=== PATIENT | female | born 1980 | race Two or more races ===

== ENCOUNTER → 2017-04-29 | Outpatient (CLI) | payer OTHER | END | disposition home or self-care (01) | LOC: PETCFH 11:16 | PROVIDERS: ATTEND Internal Medicine Gastroenterology | DX: R10.13 Epigastric pain (principal); R07.9 Chest pain, unspecified | CPT/HCPCS: 78227; A9537 ==

== ENCOUNTER 2019-08-03 05:38 | Observation (INO) | payer OTHER ==
[2019-08-01 09:36] LABS: BASOPHILS # (AUTO) 0.03 x10^3/uL (0-0.1); BASOPHILS % (AUTO) 1 % (0-1); EOSINOPHILS # (AUTO) 0.07 x10^3/uL (0-0.4); EOSINOPHILS % (AUTO) 2 % (1-7); LYMPHOCYTES # (AUTO) 1.39 x10^3/uL (1-3.4); LYMPHOCYTES % (AUTO) 35 % (22-44); MD NO; MEAN CORPUSCULAR HEMOGLOBIN 27.5 pg (27.0-34.8); MEAN CORPUSCULAR HGB CONC 32.6 g/dL (32.4-35.8); MEAN CORPUSCULAR VOLUME 84.2 fL (80-100); MEAN PLATELET VOLUME 9.7 fL (7.4-10.4); MONOCYTES # (AUTO) 0.47 x10^3/uL (0.2-0.8); MONOCYTES % (AUTO) 12 % (2-9); NEUTROPHILS # (AUTO) 1.99 x10^3/uL (1.8-6.8); NEUTROPHILS % (AUTO) 50 % (42-75); PLATELET COUNT 242 x10^3/uL (130-400); RED BLOOD COUNT 4.82 x10^6/uL (3.82-5.3); RED CELL DISTRIBUTION WIDTH 14.3 % (9.6-15.2)
[2019-08-01 09:36] LABS: MICROSCOPIC NOT IND
[2019-08-01 09:43] LABS: INTERNATIONAL NORMALIZED RATIO 0.98 (0.93-1.1); PROTHROMBIN TIME 10.3 Seconds (9.6-11.5)
[2019-08-01 09:44] LABS: CULTURE INDICATED? NO
[2019-08-01 09:45] LABS: ANION GAP 7 mmol/L (5-15); CALCIUM 8.8 mg/dL (8.5-10.1); CHLORIDE 107 mmol/L (98-107); CREATININE 0.75 mg/dL (0.55-1.02)
[~2019-08-03] VITALS: Ht 161.3 cm; Wt 72.2 kg
[~2019-08-03 05:38] MED LIST: GABA300C10 PO; LACT1CAP35 PO; MULT-806 PO; VITA1CAP PO
[2019-08-03] MEDS ORDERED: LACTATED RINGERS 1,000 ML IV SCH (06:06)
[2019-08-03 06:09] VITALS: BP 112/79
[2019-08-03] MEDS ORDERED: EPINEPHRINE 1 MG/ML, 1ML ONE (06:09)
[2019-08-03] MEDS ORDERED: THROMBIN (RECOMBINANT) 5,000 UNIT VIAL TP ONE (06:09)
[2019-08-03] MEDS ORDERED: BUPIVACAINE/PF 0.5% ONE (06:09)
[2019-08-03] MEDS ORDERED: BACITRACIN 50,000 UNIT ONE (06:10)
[2019-08-03] MEDS ORDERED: VANCOMYCIN 1,000 MG ONE (06:13)
[2019-08-03] MEDS ORDERED: FENTANYL PF 250 MCG/5ML ONE ×2 (06:19→07:32)
[2019-08-03] MEDS ORDERED: MIDAZOLAM 1 MG/ML, 2ML ONE (06:19)
[2019-08-03] MEDS ORDERED: PROPOFOL 10 MG/ML, 20ML ONE (06:26)
[2019-08-03] MEDS ORDERED: ROCURONIUM 10MG/ML,5ML ONE (06:26)
[2019-08-03] MEDS ORDERED: NEOSTIGMINE 1 MG/ML, 10ML ONE (06:26)
[2019-08-03] MEDS ORDERED: DEXAMETHASONE 4 MG/ML, 1ML ONE (06:26)
[2019-08-03] MEDS ORDERED: CEFAZOLIN 1,000 MG ONE (06:26)
[2019-08-03] MEDS ORDERED: ONDANSETRON 2MG/ML, 2ML ONE (06:26)
[2019-08-03] MEDS ORDERED: GLYCOPYRROLATE 0.2MG/1ML, 5ML ONE (06:26)
[2019-08-03] MEDS ORDERED: PHENYLEPHRINE 10 MG/ML ONE (06:26)
[2019-08-03 06:27] LABS: HCG UR SG 1.013 (1.003-1.030)
[2019-08-03] MEDS ORDERED: ACETAMINOPHEN 500 MG TABLET PO ONE (06:30)
[2019-08-03] MEDS ORDERED: SCOPOLAMINE PATCH, 1.5MG PATCH.TD72 TD ONE (06:30)
[2019-08-03] MEDS ORDERED: GABAPENTIN 300 MG CAPSULE PO ONE (06:30)
[2019-08-03] MEDS ORDERED: MORPHINE SULFATE 4 MG/ML, 1ML IVPush PRN (07:00)
[2019-08-03] MEDS ORDERED: HYDROmorphone 2 MG/ML, 1ML IVPush PRN (07:00)
[2019-08-03] MEDS ORDERED: OXYcodone 5 MG/5 ML ORAL.SOL UDC PO PRN (07:00)
[2019-08-03] MEDS ORDERED: PROMETHAZINE 25 MG/ML, 1ML IV PRN (07:00)
[2019-08-03] MEDS ORDERED: DIAZEPAM 5 MG/ML, 2ML IVPush PRN (07:00)
[2019-08-03] MEDS ORDERED: MEPERIDINE/PF 25MG/ML,1ML IVPush PRN (07:00)
[2019-08-03] MEDS ORDERED: LABETALOL 5MG/ML, 20ML IV PRN (07:00)
[2019-08-03] MEDS ORDERED: hydrALAzine 20 MG/ML, 1ML IV PRN (07:00)
[2019-08-03] MEDS ORDERED: HALOPERIDOL 5 MG/ML IV PRN (07:00)
[2019-08-03] MEDS ORDERED: MEPERIDINE/PF 25MG/ML,1ML ONE (08:51)
[2019-08-03] MEDS ORDERED: METHOCARBAMOL 1,000 MG in DEXTROSE 5% 100 ML IV ONE (09:00)
[2019-08-03] MEDS ORDERED: MAGNESIUM HYDROXIDE 8%, 30ML UDC PO PRN (09:00)
[2019-08-03] MEDS ORDERED: FENTANYL PF 100 MCG/2ML ONE (09:01)
[2019-08-03] MEDS ORDERED: OXYcodone 5 MG/5 ML ORAL.SOL UDC ONE (09:01)
[2019-08-03] MEDS: FENTANYL PF 100 MCG/2ML IV PRN ×2 (09:02→09:08)
[2019-08-03] MEDS ORDERED: HYDROmorphone 1 MG/ML, 1ML VIAL ONE (09:33)
[2019-08-03 10:56] VITALS: BP 106/61
[2019-08-03] MEDS ORDERED: DIPHENHYDRAMINE 25 MG CAPSULE PO PRN (11:00)
[2019-08-03] MEDS ORDERED: DIPHENHYDRAMINE 50 MG/ML, 1ML IVPush PRN (11:00)
[2019-08-03] MEDS ORDERED: PROMETHAZINE 25 MG/ML, 1ML IM PRN (11:00)
[2019-08-03] MEDS ORDERED: OXYcodone/APAP 5/325MG TABLET PO PRN (11:00)
[2019-08-03] MEDS ORDERED: BISACODYL 10 MG SUPP PR PRN (11:00)
[2019-08-03] MEDS ORDERED: DIPHENHYDRAMINE 50 MG/ML, 1ML IM PRN (11:00)
[2019-08-03] MEDS ORDERED: HYDROmorphone 2MG TABLET PO PRN (11:00)
[2019-08-03] MEDS ORDERED: HYDROmorphone 2 MG/ML, 1ML IM PRN (11:00)
[2019-08-03] MEDS: ONDANSETRON 2MG/ML, 2ML IV PRN ×2 (12:11→21:00)
[2019-08-03] MEDS: CEFAZOLIN PMX 1GM/50ML 50 ML IVPB SCH ×2 (15:15→23:46)
[2019-08-03] MEDS ORDERED: METHOCARBAMOL 750 MG TABLET PO PRN (17:00)
[2019-08-03 19:45] VITALS: BP 98/60
[2019-08-03] MEDS: D5%-0.9% NACL+KCL 20MEQ 1,000 ML IV SCH (20:37)
[2019-08-03] MEDS ORDERED: GABAPENTIN 300 MG CAPSULE PO SCH (21:00)
[2019-08-03] MEDS: HYDROcodone/APAP 5/325 TABLET PO PRN (23:44)
[2019-08-04 00:04] VITALS: BP 100/63
[2019-08-04 04:03] VITALS: BP 91/49
[2019-08-04] MEDS: D5%-0.9% NACL+KCL 20MEQ 1,000 ML IV SCH (05:00)
[2019-08-04] MEDS ORDERED: ENOXAPARIN 40 MG/0.4 ML SQ SCH (06:00)
[2019-08-04] MEDS ORDERED: HYDROcodone/APAP 10/325 MG TABLET PO PRN (07:30)
[2019-08-04 07:45] VITALS: BP 147/83
[2019-08-04] MEDS ORDERED: HYDR-36 PO (08:41)
[2019-08-04] MEDS ORDERED: METH750T87 PO (08:41)
[2019-08-04] MEDS ORDERED: SENNA/DOCUSATE TABLET PO SCH (09:00)
[2019-08-04] MEDS: HYDROcodone/APAP 5/325 TABLET PO PRN (09:11)
== END 2019-08-04 12:48 | disposition home or self-care (01) ==
LOC: OUT 05:38 → 4NE 10:32 → INTOOBSV 10:38 → 4NE 10:38 → OUT 11:03 → DCLOUNGE 08-04 12:25
PROVIDERS: ADMIT Neurological Surgery; ATTEND Neurological Surgery
DX: M48.061 Spinal stenosis, lumbar region without neurogenic claudication (principal); M51.16 Intervertebral disc disorders with radiculopathy, lumbar region; M51.37 Other intervertebral disc degeneration, lumbosacral region; M47.27 Other spondylosis with radiculopathy, lumbosacral region; M79.662 Pain in left lower leg; Z79.899 Other long term (current) drug therapy; Z88.1 Allergy status to other antibiotic agents
CPT/HCPCS: 36415; 63047; 63048; 71046; 72100; 80048; 81003; 81025; 85025; 85610; 85730; 93005; 96365; 96366; 96372; 96375; 96376; 97162; 97165; G0378; J0171; J0690; J1100; J1170; J1650; J2175; J2250; J2370; J2405; J2550; J2704; J2710; J2800; J3010; J3370; J3480; J7120; S0020